=== PATIENT | female | born 1945 | race Asian ===

== ENCOUNTER 2019-04-26 11:27 | Emergency (ER) | payer OTHER ==
[~2019-04-26] VITALS: Ht 165.1 cm; Wt 56.7 kg
[2019-04-26] MEDS ORDERED: KETOROLAC TROMETH 60MG/2ML VIAL IM ONE (14:45)
[2019-04-26 14:55] VITALS: BP 150/76
== END 2019-04-26 15:35 | disposition home or self-care (01) ==
LOC: ER 11:27
DX: M54.5 Low back pain (principal); G89.29 Other chronic pain; E78.5 Hyperlipidemia, unspecified; I10 Essential (primary) hypertension
CPT/HCPCS: 72100; 96372; 99283; J1885